=== PATIENT | male | born 1965 ===

== ENCOUNTER 2018-09-18 08:08 | Emergency (ER) | payer BC ==
[2018-09-18 08:19] VITALS: TEMP 97.8; O2SAT 95
[2018-09-18] MEDS ORDERED: Naproxen 550 mg Tab PO STA (08:28)
[2018-09-18] MEDS: Albuterol-Ipratrop 3 mg / 0.5 (3 ml) UD IH SCH ×3 (08:35→09:31)
--- NOTE | 2018-09-18 08:37 | ED PDOC ---
Arrival/HPI - General Chief Complaint: Cough, Cold, Congestion Time Seen by Provider: 09/18/18 08:19 Historian: Patient - History of Present Illness Narrative History of Present Illness (Text): 09/18/18 08:34 A 53 year old male, no previous hx, but pt is heavy smoker, presents to the emergency department complaining of left side rib pain and cough/sob for few days. Patient denies any fever, or any other complaints at this time. Admits to history of smoking. Past Medical History - Provider Review Nursing Documentation Reviewed: Yes - Psychiatric Hx Substance Use: No Family/Social History - Physician Review Nursing Documentation Reviewed: Yes Family/Social History: No Known Family HX Smoking Status: Heavy Smoker > 10 Cigarettes Daily Hx Alcohol Use: Yes (Beer) Frequency of alcohol use: Daily Hx Substance Use: No Allergies/Home Meds Allergies/Adverse Reactions: Allergies No Known Allergies Allergy (Verified 09/18/18 08:18) Review of Systems - Physician Review All systems were reviewed & negative as marked: Yes - Review of Systems Constitutional: absent: Fevers Respiratory: Cough (dry) Musculoskeletal: Other (left rib pain) Physical Exam Vital Signs Reviewed: Yes Vital Signs Temp Pulse Resp BP Pulse Ox 09/18/18 08:18 97.8 F 94 H 17 142/73 95 Temperature: Afebrile Blood Pressure: Normal Pulse: Regular Respiratory Rate: Normal Appearance: Positive for: Well-Appearing, Non-Toxic, Comfortable Pain Distress: None Mental Status: Positive for: Alert and Oriented X 3 - Systems Exam Head: Present: Atraumatic, Normocephalic Pupils: Present: PERRL Extroacular Muscles: Present: EOMI Conjunctiva: Present: Normal Mouth: Present: Moist Mucous Membranes Neck: Present: Normal Range of Motion Respiratory/Chest: Present: Clear to Auscultation, Good Air Exchange, Other (left chest wall tenderness). No: Respiratory Distress, Accessory Muscle Use Cardiovascular: Present: Regular Rate and Rhythm, Normal S1, S2. No: Murmurs Abdomen: No: Tenderness, Distention, Peritoneal Signs Back: Present: Normal Inspection Upper Extremity: Present: Normal Inspection. No: Cyanosis, Edema Lower Extremity: Present: Normal Inspection. No: Edema Neurological: Present: GCS=15, CN II-XII Intact, Speech Normal Skin: Present: Warm, Dry, Normal Color. No: Rashes Psychiatric: Present: Alert, Oriented x 3, Normal Insight, Normal Concentration Medical Decision Making ED Course and Treatment: 09/18/18 08:35 Impression: 53 year old male with left side rib pain. Physical exam shows left chest wall tenderness. heavy smoker. in er, wheezing b/l ro copd/bronchtiis/pna. Plan: -- Duoneb -- Anaprox -- Prednisone -- Influenza A B -- Left Rib X-Ray -- Reassess and disposition Progress Notes: EKG: Ordered, reviewed, and independently interpreted the EKG. Rate : 90 BPM Rhythm : NSR Interpretation : No ST-segment elevations or depressions, no T-wave inversions, normal intervals. Comparison : No previous EKG for comparison. 09/18/18 10:53 pt reasssed after inital nebs and steriods. observed 2+ hours. persistent wheezing. labs ordered. will admit 09/18/18 11:00 09/18/18 13:03 s/p labs now pt feels better. watching tv in [place]. now asks for dc,r efuses admission. wheezing improving, minimal at this time. - Lab Interpretations I have reviewed the lab results: Yes - RAD Interpretation Radiology Orders: 09/18/18 08:27 RIBS LEFT & PA CHEST [RAD] Stat - Medication Orders Current Medication Orders: Albuterol/Ipratropium (Duoneb 3 Mg/0.5 Mg (3 Ml) Ud) 3 ml IH Q15M JAYME Stop: 09/18/18 09:01 Discontinued Medications Naproxen (Anaprox Ds) 550 mg PO STAT STA Stop: 09/18/18 08:29 Prednisone (Prednisone Tab) 50 mg PO STAT STA Stop: 09/18/18 08:29 - Scribe Statement The provider has reviewed the documentation as recorded by the Herbert Lan Provider Scribe Attestation: All medical record entries made by the Scribe were at my direction and personally dictated by me. I have reviewed the chart and agree that the record accurately reflects my personal performance of the history, physical exam, medical decision making, and the department course for this patient. I have also personally directed, reviewed, and agree with the discharge instructions and disposition. Disposition/Present on Arrival - Present on Arrival Any Indicators Present on Arrival: No History of DVT/PE: No History of Uncontrolled Diabetes: No Urinary Catheter: No History of Decub. Ulcer: No History Surgical Site Infection Following: None - Disposition Have Diagnosis and Disposition been Completed?: Yes Diagnosis: Rib pain, Bronchitis Disposition: HOME/ ROUTINE Disposition Time: 11:00 Condition: STABLE Discharge Instructions (ExitCare): Chest Pain That Is Not Caused by the Heart (DC), Acute Bronchitis, Bruised Rib, Chest Pain (ED) Additional Instructions: follow up with your doctor in next 1- 2 days. return to any er with worsening symptoms or concerns. Prescriptions: Albuterol 0.083% [Albuterol 0.083% Inhal Otilia (2.5 mg/3 ml) UD] 2.5 mg IH Q4 PRN #20 neb PRN Reason: Wheezing Naproxen 500 mg PO BID PRN #14 tab PRN Reason: Pain, Mild (1-3) Nebulizer [Aeroeclipse II] 1 each MC Q4 PRN #1 each PRN Reason: Wheezing Nebulizer Accessories [Adult Aerosol Mask] 1 each MC Q4 PRN #1 each PRN Reason: Wheezing Prednisone 50 mg PO DAILY #5 tablet Forms: [employer] ([place]), WORK NOTE
[2018-09-18 10:37] LABS: BASO # 0.02 K/mm3 (0.0-2.0); BASO % 0.2 % (0.0-3.0); EOS # 0.2 (0.0-0.7); EOS % 1.2 % (1.5-5.0); HEMOGLOBIN 15.4 g/dL (14.0-18.0); LYMPH # 1.3 (1.2-3.4); MEAN CELL VOLUME 97.6 fl (80.0-105.0); MEAN CORPUSCULAR HEMOGLOBIN 33.3 pg (25.0-35.0); MEAN CORPUSCULAR HGB CONC 34.1 g/dl (31.0-37.0); MEAN PLATELET VOLUME 9.5 fl (7.0-11.0); MONO # 0.8 (0.1-0.6); MONO % 6.2 % (1.0-6.0); RBC 4.63 10^6/uL (3.5-6.1); RED CELL DISTRIBUTION WIDTH 12.9 % (11.5-14.5); WHITE BLOOD COUNT 12.9 10^3/uL (4.5-11.0)
[2018-09-18 10:41] LABS: INR 1.16; PARTIAL THROMBOPLASTIN TIME 35.6 Seconds (26.9-38.3); PROTHROMBIN TIME 13.1 SECONDS (9.4-12.5)
[2018-09-18 10:48] LABS: ALB/GLOB RATIO 1.1 (1.1-1.8); ALBUMIN 4.7 g/dL (3.0-4.8); BLOOD UREA NITROGEN 9 mg/dL (7-21); CALCIUM 9.8 mg/dL (8.4-10.5); GFR NON-AFRICAN AMERICAN > 60
[2018-09-18 11:01] LABS: B-TYPE NATRIURETIC PEPTIDE 27.3 pg/mL (0-450); TROPONIN I < 0.01 ng/mL
[2018-09-18 11:06] LABS: ALT/SGPT 36 U/L (7-56); AST/SGOT 58 U/L (17-59); CK-MB 0.8 ng/mL (0.0-3.6)
[2018-09-18 11:20] VITALS: BP 142/76; PULSE 93; RESP 18
--- NOTE | 2018-09-18 12:24 | RAD ---
Date of service: 09/18/2018 PROCEDURE: Radiographs of the Chest and Left Ribs. HISTORY: cough/left sided rib pain COMPARISON: None available. TECHNIQUE: Frontal radiograph of the chest and multiple oblique radiographs of the left ribs were obtained. 4 views obtained. FINDINGS: LEFT RIBS: No appreciable displaced fracture. LUNGS: No focal consolidation. PLEURA: No significant pleural effusion. No definite pneumothorax. CARDIOVASCULAR: Heart size appears within normal limits. Atherosclerotic calcifications of the aorta. OTHER FINDINGS: None. IMPRESSION: Unremarkable radiographs of the chest and left ribs. No appreciable displaced left rib fracture.
--- NOTE | 2018-09-18 20:33 | CARD ---
APPROVED REPORT Date of service: 09/18/2018 EKG Measurement Heart [id number] <Conclusion> Normal sinus rhythm Normal ECG
== END 2018-09-18 11:21 | disposition home or self-care (01) ==
LOC: ED 08:08 → MERGE 08:08 → ED 11:21
DX: J40 Bronchitis, not specified as acute or chronic (principal); R07.81 Pleurodynia; F17.210 Nicotine dependence, cigarettes, uncomplicated